=== PATIENT | male | born 1990 | race African-American/Black ===

== ENCOUNTER 2017-05-26 14:05 | Emergency (ER) | payer OTHER ==
[~2017-05-26] VITALS: Ht 185.4 cm; Wt 79.4 kg
[2017-05-26] MEDS ORDERED: NKM (14:15)
--- NOTE | 2017-05-26 14:24 | Emergency Room Report ---
History of Present Illness General Chief Complaint: Abdominal Pain Source: Patient Present Illness HPI 26-year-old male presents emergency department complaining of 6/10 in severity epigastric pain x4 days the patient describes aching dull pain that improves with eating food temporarily. Patient will states he was seen in emergency Department 4 days ago and was told nothing was wrong and did not receive any prescription medications patient states that his pain returned. Patient denies NSAID use, excessive alcohol intake or hx of gastritis. he denies nausea, vomiting, fevers, chills patient denies abdominal tenderness. Patient states he has been more constipated than usual and states his last bowel movement was over the weekend and he had to strain. Patient denies blood in the stool or black tarry stools otherwise. Denies CP, Palpitations, LOC, AMS, dizziness, Changes in Vision, Sensation, paresthesias, or a sudden severe headache. Allergies: Coded Allergies: PROCHLORPERAZINE (Verified Allergy, Unknown, 05/26/17) Uncoded Allergies: PEANUTS (Allergy, Unknown, 05/26/17) Patient History Past Medical History: see triage record Past Surgical History: none Pertinent Family History: none Immunizations: UTD Reviewed Nursing Documentation: PMH: Agreed, PSxH: Agreed Nursing Documentation-PMH Past Medical History: No Stated History Review of Systems All Other Systems: negative except mentioned in HPI Physical Exam Vital Signs Date Time Temp Pulse Resp B/P Pulse Ox O2 Delivery O2 Flow Rate FiO2 05/26/17 14:11 98.1 53 14 129/71 99 Room Air Sp02 EP Interpretation: reviewed, normal General Appearance: no apparent distress, alert, GCS 15, non-toxic Head: normocephalic, atraumatic Eyes: bilateral eye PERRL, bilateral eye normal inspection ENT: hearing grossly normal, normal pharynx, no angioedema, normal voice Neck: full range of motion, supple/symm/no masses Respiratory: lungs clear, normal breath sounds, speaking full sentences Cardiovascular #1: regular rate, rhythm, no edema Gastrointestinal: normal bowel sounds, non tender, soft, no guarding, no rebound, other - Negative [place] signs, Negative MacBurney's sign, Negative Rosvigns Sign, Negative Psoas, No Peritoneal signs. Rectal: deferred Musculoskeletal: back normal, gait/station normal, normal range of motion, non- tender Neurologic: alert, oriented x3, responsive, motor strength/tone normal, sensory intact, speech normal Psychiatric: judgement/insight normal, memory normal, mood/affect normal Skin: normal color, no rash, warm/dry, well hydrated Medical Decision Making PA Attestation Dr. Capellan is my supervising Physician whom patient management has been discussed with. Diagnostic Impression: Primary Impression: Gastritis Qualified Codes: K29.00 - Acute gastritis without bleeding Additional Impression: Constipation Qualified Codes: K59.00 - Constipation, unspecified ER Course 26-year-old male presents emergency department complaining of 6/10 in severity epigastric pain x4 days the patient describes aching dull pain that improves with eating food temporarily. Patient will states he was seen in emergency Department 4 days ago and was told nothing was wrong and did not receive any prescription medications patient states that his pain returned. Patient denies NSAID use, excessive alcohol intake or hx of gastritis. he denies nausea, vomiting, fevers, chills patient denies abdominal tenderness. Patient states he has been more constipated than usual and states his last bowel movement was over the weekend and he had to strain. Patient denies blood in the stool or black tarry stools otherwise. Denies CP, Palpitations, LOC, AMS, dizziness, Changes in Vision, Sensation, paresthesias, or a sudden severe headache. Ddx considered but are not limited to GE, colitis, acute appy, gastritis, PUD, pneumonia Vital signs: pt. is afebrile, H&PE are most consistent with Gastritis ORDERS: none required at this time, the diagnosis is clinical ED INTERVENTIONS: - GI Cocktail -Zantac PO DISCHARGE: At this time pt. is stable for d/c to home. Will provide printed patient care instructions, and any necessary prescriptions. Care plan and follow up instructions have been discussed with the patient prior to discharge. Last Vital Signs Date Time Temp Pulse Resp B/P Pulse Ox O2 Delivery O2 Flow Rate FiO2 05/26/17 14:11 98.1 53 14 129/71 99 Room Air Disposition: HOME, SELF-CARE Condition: Stable Scripts Lactulose (LACTULOSE*) 20 Gm/30 Ml Solution 30 ML ORAL BID for Constipation for 3 Days, #180 ML 0 Refills Prov: Mariana Herrera P.Laura 05/26/17 Docusate Sodium* (COLACE*) 100 Mg Capsule 100 MG ORAL TWICE A DAY, #30 CAP Prov: Mariana Herrera 05/26/17 Lidocaine HCl (Lidocaine HCl Viscous) 100 Ml Solution 15 ML PO TID for For Pain, #100 ML Prov: Mariana Herrera 05/26/17 Ranitidine Hcl* (ZANTAC*) 150 Mg Tablet 150 MG ORAL TWICE A DAY for 14 Days, #28 TAB Prov: Mariana Herrera 05/26/17 Patient Instructions: Gastritis, Adult Additional Instructions: Take medications as directed. Follow up with PCP in 3-5 days Return sooner to ED if new symptoms occur, or current symptoms become worse. Please see list of local free/reduced cost health clinics for primary care follow up - Please note that this Emergency Department Report was dictated using [employer] orthopedic team physician technology software, occasionally this can lead to erroneous entry secondary to interpretation by the dictation equipment. Mariana Herrera May 26, 2017 14:24
[2017-05-26] MEDS ORDERED: Lidocaine 2% Visc 15ml soln ORAL ONE (14:45)
[2017-05-26] MEDS ORDERED: Dicyclomine HCl 10mg/5ml oral soln ORAL ONE (14:45)
[2017-05-26] MEDS ORDERED: Mylanta II UD 30ml ORAL ONE (14:45)
[2017-05-26] MEDS ORDERED: LACTULOSE20 GM/301 ORAL (15:12)
[2017-05-26] MEDS ORDERED: COLACE100 MG ORAL (15:12)
[2017-05-26] MEDS ORDERED: ZANTAC150 MG ORAL (15:12)
[2017-05-26] MEDS ORDERED: LIDOCAINE VISCO20 ML PO (15:12)
[2017-05-26 15:23] VITALS: BP 122/79
== END 2017-05-26 15:26 | disposition home or self-care (01) ==
LOC: EMR 14:35
DX: K29.00 Acute gastritis without bleeding (principal); K59.00 Constipation, unspecified; Z91.010 Allergy to peanuts; Z88.8 Allergy status to other drugs, medicaments and biological substances
CPT/HCPCS: 99284